=== PATIENT | female | born 1995 | race Caucasian/White ===

== ENCOUNTER 2018-09-19 02:22 | Emergency (ER) | payer OTHER ==
[~2018-09-19] VITALS: Ht 160 cm; Wt 61.2 kg
[2018-09-19 02:23] VITALS: BP 117/69; Ht 160 cm; Wt 61.2 kg
== END 2018-09-19 03:28 | disposition other institution (70) ==
LOC: ED 02:22
DX: Z02.89 Encounter for other administrative examinations (principal)